=== PATIENT | female | born 1950 | race Caucasian/White ===

== ENCOUNTER → 2017-06-04 | Outpatient (CLI) | payer MEDICARE, OTHER ==
[~2017-06-04] MED LIST: AZI250 PO; CALC1TAB32 PO; DESV50TA9 PO; DEXT15CA PO; DICL-189 PO; HCTZ; LOR5/325 PO; LOSA25TA50 PO; LUTE10TA3 PO; PRE20 PO; VENL150C61 PO
--- NOTE | 2017-06-04 10:24 | RADIOLOGY IMAGING REPORT ---
FACILITY: [facility] - [place] PATIENT NAME: Jerri Sahni : 1950 MR: [id number] V: [id number] EXAM DATE: ORDERING PHYSICIAN: RAJAN RAMOS TECHNOLOGIST: [place] [facility] [place] Patient: Jerri Sahni : 1950 Visit/Account:[id number] Date of Sevice: 06/04/2017 DEXA Scan Clinical history: Postmenopausal. Comparison: DEXA scan from 09/24/2007. LUMBAR SPINE: The bone mineral density (BMD) measured from L1-L4 correlates with a Z-score of 2.8 and a T-score of 2.3 which is Normal as defined by the World Health Organization. The corresponding risk of fracture in the lumbar spine is Not increased compared with a young adult reference population. This value day s increased by 1.5 % since the prior study. More than 5% change is considered significant. HIP: Bone mineral density (BMD) measured in the LEFT total hip region correlates with a Z-score 0.8 and a T-score of 0.2 which is normal as defined by the World Health Organization. The corresponding risk of fracture in the hip is Not i ncreased compared to a young adult reference population. This value has decreased by 12.1 % since the prior study. More than 5% change is considered significant. T score left femoral neck 0.2 Bone mineral density (BMD) measured in the Femoral Neck region measures 1.069 g/cm?. IMPRESSION: 1. Lumbar spine: Normal. There has been 1.5% increase in the bone mineral density since the previou s exam. 2. Left Total Hip: Normal. There has been 12.1% decrease in the bone mineral density since the prev ious exam. 3. Femoral Neck: Bone Mineral Density is 1.069 g/cm? The next DEXA scan of this patient should include the following sites: L1-L4 and the left hip. FRAX? WHO Fracture Risk Assessment Tool link: <http://www.shef.ac.uk/FRAX/tool.jsp?locationValue=9> PLEASE NOTE: 1) The World Health Organization defines low BMD as follows: T-score Normal > -1 Osteopenia < -1 and > -2.5 Osteoporosis < -2.5 without fractures Established osteoporosis < -2.5 with fractures 2) In general, you may wish to consider: Diagnosis Treatment Follow-up DEXA Normal BMD Prevention 2-3 years Osteopenia Prevention/therapy 1-2 years Osteoporosis Therapy Yearly 3) Fracture risk estimated from the T-score is more accurate for vertebral fractures (often spontane ous) than for hip fractures. Report Dictated By: Allie Hughes MD at 06/04/2017 10:19 AM Report E-Signed By: Allie Hughes MD at 06/04/2017 10:20 AM WSN:[email or web address]
== END ==
LOC: RAD 02:12
PROVIDERS: ATTEND Physician Assistant
DX: N95.8 Other specified menopausal and perimenopausal disorders (principal)
CPT/HCPCS: 77080

== ENCOUNTER → 2017-09-14 | Outpatient (CLI) | payer MEDICARE, OTHER ==
--- NOTE | 2017-09-14 15:29 | RADIOLOGY IMAGING REPORT ---
FACILITY: [facility] PATIENT NAME: ZAYNAB BEST : [id number] MR: [id number] V: [id number] EXAM DATE: ORDERING PHYSICIAN: RAJAN RAMOS TECHNOLOGIST: Talya Hunter PROCEDURE:BILATERAL DIGITAL SCREENING MAMMOGRAM WITH CAD ASSISTED INTERPRETATION & 3D TOMOSYNTHESIS COMPARISON:Prior mammograms 09/12/16, 10/06/14, 09/02/13, 08/16/12. INDICATIONS:SCREENING FINDINGS: A small amount of fibroglandular tissue is seen throughout the breasts. The parenchymal pattern has remained stable allowing for difference in mammographic technique & patient positioning. There is no evidence of malignant appearing mass, malignant appearing calcifications or other secondary sign of malignancy in either breast. DIAGNOSTIC CATEGORY 1--NEGATIVE. RECOMMENDATIONS: ROUTINE MAMMOGRAM AND CLINICAL EVALUATION. IMPRESSION: BIRADS 1: Negative No significant abnormality is seen. Dictated by: Allie Hughes M.D. on 09/14/2017 at 12:13 Transcribed by: BROOKLYNN on 09/14/2017 at 13:25 Approved by: Allie Hughes M.D. on 09/14/2017 at 15:28 [facility]
== END ==
LOC: MAMO 02:10
PROVIDERS: ATTEND Physician Assistant
DX: Z12.31 Encounter for screening mammogram for malignant neoplasm of breast (principal)
CPT/HCPCS: 77063; 77067

== ENCOUNTER → 2018-10-04 | Outpatient (CLI) | payer MEDICARE, OTHER ==
[~2018-10-04] MED LIST changes: -LOSA25TA50 PO; +LOSA25TA57 PO
--- NOTE | 2018-10-07 10:03 | RADIOLOGY IMAGING REPORT ---
FACILITY: [facility] - [place] PATIENT NAME: ZAYNAB BEST : [id number] MR: [id number] V: [id number] EXAM DATE: ORDERING PHYSICIAN: RAJAN RAMOS TECHNOLOGIST: Talya Hunter PROCEDURE: BILATERAL DIGITAL SCREENING MAMMOGRAM WITH CAD ASSISTED INTERPRETATION & 3D TOMOSYNTHESIS REASON FOR STUDY: Screening. FAMILY HISTORY OF BREAST CANCER: Mother and Aunt. BREAST PROCEDURES/TREATMENTS: None. COMPARISON: Prior mammograms 09/14/17, 09/12/16, 10/06/14, 09/02/13, 08/16/12. VIEWS OBTAINED: 2D & 3D full field CC & MLO BREAST DENSITY: The breasts are almost entirely fatty. MAMMOGRAM FINDINGS: The parenchymal pattern has remained stable allowing for difference in mammographic technique & patient positioning. IMPRESSION: BIRADS 1: Negative. DIAGNOSTIC CATEGORY 1--NEGATIVE. RECOMMENDATIONS: ROUTINE MAMMOGRAM AND CLINICAL EVALUATION. Dictated by: Allie Hughes M.D. on 10/04/2018 at 15:06 Transcribed by: BROOKLYNN on 10/07/2018 at 9:37 Approved by: Allie Hughes M.D. on 10/07/2018 at 10:02 [facility]
== END ==
LOC: MAMO 02:11
PROVIDERS: ATTEND Physician Assistant
DX: Z12.31 Encounter for screening mammogram for malignant neoplasm of breast (principal)
CPT/HCPCS: 77063; 77067